=== PATIENT | male | born 1935 | race Caucasian/White ===

== ENCOUNTER 2018-03-21 10:46 | Emergency (ER) | payer MEDICARE ==
--- NOTE | 2018-03-21 11:04 | Emergency Department Record ---
History of Present Illness - General Chief complaint: Male Urogenital Problem Stated complaint: URINATING BLOOD Time Seen by Provider: 03/21/18 10:55 Source: Patient Mode of Arrival: Ambulatory Limitations: No limitations - History of Present Illness Initial comments: The patient is here due to intermittent hematuria for the last 5 months. He states it cleared up for a bit but then started back about a month ago. The patient was seen in the 4 days ago for a thumb wound infection and did complain of the hematuria also. He did give a urine with blood present. The patient was started on Augmentin and does have an appointment with Urology in 10 days. He denies any AP, nausea, vomiting, fever, or chills. MD Complaint: Other Onset/Timin -: Month(s) Location: Penis Quality: Burning Reports: Blood in urine - Related Data Allergies Allergy/AdvReac Type Severity Reaction Status Date / Time No Known Drug Allergies Allergy Unverified 03/17/18 10:02 Travel Screening - Travel/Exposure Within Last 30 Days Have you traveled within the last 30 days?: No - Travel/Exposure Within Last Year Have you traveled outside the [place] in the last year?: No - Additonal Travel Details Have you been exposed to anyone with a communicable illness?: No - Travel Symptoms Symptom Screening: None Review of Systems Constitutional: Denies: Chills, Fever Eyes: Denies: Eye discharge ENT: Denies: Congestion Respiratory: Denies: Cough, Dyspnea Past Medical History - SOCIAL HISTORY Smoking Status: Former smoker Alcohol Use: None Drug Use: None - RESPIRATORY Hx Respiratory Disorders: No - CARDIOVASCULAR Hx Cardio Disorders: Yes Hx Cardiac Cath: Yes Hx Heart Attack: Yes Hx Hypertension: Yes - NEURO Hx Neuro Disorders: Yes Hx CVA: Yes (1999) - GI Hx GI Disorders: No - Hx Genitourinary Disorders: Yes Hx UTI: Yes (Hurts to urinate for last few years) - ENDOCRINE Hx Endocrine Disorders: Yes Hx Thyroid Disease: Yes (Hypothyroid) - MUSCULOSKELETAL Hx Musculoskeletal Disorders: No - PSYCH Hx Psych Problems: No - HEMATOLOGY/ONCOLOGY Hx Hematology/Oncology Disorders: No Family Medical History Any Significant Family History?: No Hx Cancer: Brother/Sister Physical Exam - General General Appearance: Alert, Oriented x3, Cooperative, No acute distress - Head Head exam: Atraumatic, Normocephalic, Normal inspection - Eye Eye exam: Normal appearance, PERRL - Neck Neck exam: Normal inspection, Full ROM. negative: Tenderness - Respiratory Respiratory exam: Normal lung sounds bilaterally. negative: Respiratory distress - Cardiovascular Cardiovascular Exam: Regular rate, Normal rhythm, Normal heart sounds - GI/Abdominal GI/Abdominal exam: Soft, Normal bowel sounds. negative: Tenderness - Extremities Extremities exam: Normal inspection, Full ROM, Normal capillary refill. negative: Tenderness - Neurological Neurological exam: Alert. negative: Motor sensory deficit Course Vital Signs 03/21/18 10:48 Temperature 97.9 F Pulse Rate 54 L Respiratory 16 Rate Blood Pressure 127/63 Pulse Ox 99 - Reevaluation(s) Reevaluation #1: The patient is resting comfortably in no pain presently. He denies any nausea, vomiting, or constipation. I did discuss the CT results with him and the need for urgent Urology F/U. 03/21/18 14:06 Reevaluation #2: I did discuss the issues with the patient and feel he would be better off seeing a Urologist today. I did discuss the issues with Dr. Khoury and he would like the patient to go to the [facility] ER where his Fellow can see the patient. I did discuss this with the patient and his son and they will drive up to [facility] to be seen in the ER. 03/21/18 14:45 Medical Decision Making - Data Complexity MDM Data: Labs Ordered and/or Reviewed, X-Ray Ordered and/or Reviewed, EKG Ordered and/or Reviewed - Lab Data Result diagrams: 03/21/18 11:10 03/21/18 11:10 - EKG Data -: EKG Interpreted by Me EKG: No Acute Changes, Unchanged From Previous (The patient does have a NSR rhythm but with bigeminy. That is not a new finding for him and he does go in and out of it. It was evident on an EKG from 2015.) - Radiology Data Radiology results: Report reviewed (CT: Extensive diffuse bladder wall thickening with a nodular appearance and calcifications posteriorly. ) Disposition Disposition: Transfer Clinical Impression: Hematuria Qualifiers: Hematuria type: unspecified type Qualified Code(s): R31.9 - Hematuria, unspecified Disposition: Acute Care Hospital Transfer Transfer To: [facility] Reason For Transfer: Urology Accepting Physician: Mare Time Discussed w/Accepting Physician: 14:47 Condition: (2) Stable Forms: Patient Portal Access Time of Disposition: 14:47 Quality - Quality Measures Quality Measures: N/A - Blood Pressure Screening View Details: Yes Does Patient Have Any of the Following: No Blood Pressure Classification: Normal BP Reading Systolic Measurement: 104 Diastolic Measurement: 46 Screening for High Blood Pressure: < Normal BP, F/U Not Required > [G8783]
[2018-03-21 11:18] LABS: BASO % 0.5 % (0-6); EOS % 3.9 % (0-6); GRAN % 61.4 % (47-80); HEMATOCRIT 37.2 % (42.0-52.0); HEMOGLOBIN 11.6 gm/dl (14.0-18.0); LYMPH % 27.3 % (16-45); MEAN CELL VOLUME 93.9 fl (81-97); MEAN CORPUSCULAR HGB CONC 31.2 g/dl (32-36); MEAN PLATELET VOLUME 10.2 fl (7.4-10.4); MONO % 6.9 % (0-9); PLATELET COUNT 187 K/uL (130-400); RED BLOOD COUNT 3.96 M/uL (4.40-5.70); RED CELL DISTRIBUTION WIDTH 13.3 % (11.5-14.5); WHITE BLOOD COUNT W/O DIFF 6.2 K/uL (4.2-12.2)
[2018-03-21 11:20] LABS: MEAN CORPUSCULAR HEMOGLOBIN 29.2 pg (27-33)
[2018-03-21 11:27] LABS: BLOOD UREA NITROGEN 20 mg/dL (8-23); CREATININE 0.9 mg/dL (0.7-1.2); EST GLOMERULAR FILTRATION RATE > 60 mL/min
[2018-03-21 11:28] LABS: TOTAL PROTEIN 6.6 g/dL (6.6-8.7); URINE APPEARANCE TURBID; URINE BILIRUBIN NEGATIVE (NEGATIVE); URINE BLOOD LARGE (NEGATIVE); URINE COLOR RED; URINE GLUCOSE (UA) NEGATIVE (NEGATIVE); URINE KETONE TRACE (NEGATIVE); URINE LEUKOCYTE ESTERASE SMALL (NEGATIVE); URINE NITRITE POSITIVE (NEGATIVE)
[2018-03-21 11:30] LABS: GLUCOSE,RANDOM 110 mg/dL (74-109)
[2018-03-21 11:33] LABS: ALB/GLOB RATIO 1.5 (1.1-1.8); ALKALINE PHOSPHATASE 85 U/L (40-129); ALT/SGPT 17 U/L (<41); AST/SGOT 22 U/L (10.0-50.0); URINE PROTEIN 300 mg/dL (NEGATIVE)
[2018-03-21 11:34] LABS: URINE EPITHELIAL CELLS 0 - 2 (FEW); URINE WBC 0 - 2 (0-2/hpf)
[2018-03-21 11:35] LABS: URINE BACTERIA 1+
[2018-03-21] MEDS ORDERED: 0.9 % SODIUM CHLORIDE 1,000 ML BAG IV ONE (11:43)
[2018-03-21 12:58] LABS: CREATINE PHOSPHOKINASE 62 U/L (39-308)
[2018-03-21 12:59] LABS: CKMB 2.6 ng/mL (<6.73)
--- NOTE | 2018-03-22 16:31 | CT SCAN REPORT ---
DATE: 03/21/2018. EXAM: CT SCAN OF THE ABDOMEN AND PELVIS. HISTORY: Hematuria. TECHNIQUE: CT of the abdomen and pelvis was performed following intravenous administration of 100 mL of Omnipaque contrast. Oral contrast was also utilized. COMPARISON: None. FINDINGS: Limited evaluation of the lung bases shows emphysematous changes with minor fibrotic changes bilaterally. Calcified pleural plaque formation is noted. Osseous structures are grossly intact. There is an approximately 14 x 17 mm hypodensity within the left hepatic lobe; likely a cyst or hemangioma in the absence of cancer history. In addition, there is an approximately 6.0 x 4.0 mm hypodensity in the spleen; likely a tiny cyst. The adrenal glands, pancreas, and kidneys are unremarkable. The gallbladder is present. Rather extensive atheromatous changes. A large amount of stool in the colon. No gross evidence for bowel obstruction. A large amount of stool in the rectal vault. Diffuse wall thickening of the urinary bladder with irregular areas of urinary bladder wall calcification and nodularity. Further assessment with cystoscopy is recommended. The prostate is enlarged. Correlate with prostate specific antigen levels. Minor surrounding inflammatory change. No free air or free fluid. Nonenlarged inguinal chain and deep pelvic chain lymph nodes. IMPRESSION: 1. DIFFUSE URINARY BLADDER WALL THICKENING HAVING A SOMEWHAT NODULAR APPEARANCE POSTERIORLY WHERE THERE ARE IRREGULAR URINARY BLADDER WALL CALCIFICATIONS WELL. FURTHER ASSESSMENT WITH CYSTOSCOPY IS RECOMMENDED. THE PROSTATE IS ENLARGED WITH MULTIPLE CALCIFICATIONS. CORRELATE WITH PROSTATE SPECIFIC ANTIGEN LEVELS. 2. EXTENSIVE ATHEROMATOUS CHANGE. A LARGE AMOUNT OF STOOL IN THE COLON. 3. NONSPECIFIC HYPODENSITY IN THE LEFT HEPATIC LOBE; LIKELY CYST OR HEMANGIOMA. 4. PLEURAL-BASED CALCIFICATIONS. SUBCENTIMETER HYPODENSITY IN THE SPLEEN; LIKELY A TINY CYST. JOB NUMBER: [id number] [facility]
== END 2018-03-21 15:21 | disposition short-term general hospital (02) ==
LOC: ER 10:46
DX: R31.0 Gross hematuria (principal); I10 Essential (primary) hypertension; I25.2 Old myocardial infarction; Z87.891 Personal history of nicotine dependence; Z86.73 Personal history of transient ischemic attack (TIA), and cerebral infarction without residual deficits
CPT/HCPCS: 99285 ×2; 82550; 85025; 82553; 80053; 81001; 84484; 74177; 93005; 93010; Q9967; J7030

== ENCOUNTER 2019-12-08 07:43 | Emergency (ER) | payer MEDICARE ==
[2019-12-08] MEDS ORDERED: 0.9 % SODIUM CHLORIDE 1000ML 1,000 ML IV ONE (07:54)
--- NOTE | 2019-12-08 08:00 | Emergency Department Record ---
History of Present Illness - General Chief complaint: Nausea, Vomiting, Diarrhea Stated complaint: NAUSEA Time Seen by Provider: 12/08/19 07:48 Source: Patient, Family Mode of Arrival: Ambulatory Limitations: No limitations - History of Present Illness Initial comments: 84 yo male presents with a concern that he has part of his turkey sandwich stuck in his esophagus for 2 days since Saturday. He was eating a turkey sandwich on Saturday while watching football. He took a bite and felt like it got stuck. He has not been able to keep and food down since then. He has not been able to handle liquids or solids since then. He will occasionally spit up his saliva. He has had things get stuck in the past but it has self resolved. He does not recall ever having upper endoscopy in the past. No fever, no syncope. No abdominal pain. Hx of hypothyroid, elevated cholesterol, stroke, skin CA complaint: Nausea, Vomiting, Other (Possible food stuck since Saturday) -: Days(s) (2) Description of Vomiting: Watery Description of Diarrhea: Other (None) Radiation: None Severity: Moderate Quality: Aching Consistency: Constant Improves with: None Worsens with: Eating Context: Other - Related Data Allergies Allergy/AdvReac Type Severity Reaction Status Date / Time No Known Drug Allergies Allergy Verified 12/08/19 07:47 Review of Systems Constitutional: Denies: Chills, Fever, Malaise, Weakness Eyes: Denies: Eye discharge ENT: Denies: Congestion, Throat pain Respiratory: Denies: Cough, Dyspnea, Hemoptysis, Wheezes Cardiovascular: Denies: Chest pain, Palpitations, Syncope Endocrine: Denies: Fatigue, Polydipsia, Polyuria Gastrointestinal: Reports: Nausea, Vomiting. Denies: Abdominal pain, Diarrhea Genitourinary: Denies: Dysuria, Frequency, Hematuria Musculoskeletal: Denies: Arthralgia, Back pain, Myalgia Skin: Denies: Bruising, Change in color, Rash Neurological: Denies: Headache Psychiatric: Denies: Anxiety Hematological/Lymphatic: Denies: Easy bruising Past Medical History - SOCIAL HISTORY Smoking Status: Former smoker Drug Use: None - RESPIRATORY Hx Respiratory Disorders: No - CARDIOVASCULAR Hx Cardio Disorders: Yes Hx Cardiac Cath: Yes Hx Heart Attack: Yes Hx Hypertension: Yes - NEURO Hx Neuro Disorders: Yes Hx CVA: Yes (1999) - GI Hx GI Disorders: No - Hx Genitourinary Disorders: Yes Hx UTI: Yes (Hurts to urinate for last few years) - ENDOCRINE Hx Endocrine Disorders: Yes Hx Thyroid Disease: Yes (Hypothyroid) - MUSCULOSKELETAL Hx Musculoskeletal Disorders: No - PSYCH Hx Psych Problems: No - HEMATOLOGY/ONCOLOGY Hx Hematology/Oncology Disorders: No Family Medical History Hx Cancer: Brother/Sister Physical Exam - General General Appearance: Alert, Oriented x3, Cooperative, No acute distress Limitations: No limitations - Head Head exam: Atraumatic - Eye Eye exam: Normal appearance, PERRL. negative: Conjunctival injection, Scleral icterus - ENT ENT exam: Normal exam, Mucous membranes moist Ear exam: Normal external inspection Nasal Exam: Normal inspection Mouth exam: Normal external inspection - Neck Neck exam: Normal inspection - Respiratory Respiratory exam: Normal lung sounds bilaterally. negative: Rhonchi, Stridor, Wheezes - Cardiovascular Cardiovascular Exam: Regular rate, Normal rhythm, Normal heart sounds Peripheral Pulses: 2+: Radial (R), Radial (L) - GI/Abdominal GI/Abdominal exam: Soft. negative: Distended, Guarding, Tenderness - Rectal Rectal exam: Deferred - exam: Deferred - Extremities Extremities exam: negative: Calf tenderness, Pedal edema, Tenderness - Back Back exam: Denies: CVA tenderness (R), CVA tenderness (L) - Neurological Neurological exam: Alert, Oriented X3 - Psychiatric Psychiatric exam: Normal affect, Normal mood. negative: Agitated, Anxious - Skin Skin exam: Dry, Intact, Normal color, Warm Course - Reevaluation(s) Reevaluation #1: Vitals were reviewed No significant abnormalities 12/08/19 08:06 No GI at [facility] until Saturday12/08/19 08:14 The CBC is normal 12/08/19 08:26 The PT and PTT are normal The BMP was reviewed. CR is 1.1 with BUN of 30 12/08/19 08:53 A small amount of fluid was trialed in the ED (about 2 teaspoons). He did not tolerate this The CXR was reviewed. No acute process. I recommend transfer to a center with GI for consultation for probable esophageal obstruction. The patient and his son where advised that I recommend ambulance for transfer. I recommend ambulance in the event he vomits and can not protect his airway or chokes. He understands this and still declines EMS. He will only agree to transfer by private car. I explained that he will have to agree to sign AMA understanding the risks of transfer by private car. Waiting for son to return prior to transfer initiation. 12/08/19 09:01 12/08/19 09:21 The son has returned to the ED. We had the same conversion about transfer by ambulance as the recommendation. He and his son discussed it an still request private car. I discussed signing AMA given some risk if not monitored during transfer. Risks include but are not limited to choking, aspiration. I called [facility] call and discussed the case with Dr Koroma of the ED. She accepts the patient for transfer and further evaluation given no GI at [facility] Medical Decision Making - Lab Data Result diagrams: 12/08/19 08:00 12/08/19 08:00 Disposition Disposition: Transfer Clinical Impression: Vomiting, Esophageal obstruction Disposition: Acute Care Hospital Transfer Transfer To: [facility] Reason For Transfer: Esophageal obstruction Accepting Physician: Ga Time Discussed w/Accepting Physician: 09:27 Condition: (2) Stable Forms: Patient Portal Access Time of Disposition: 09:27 Quality - Quality Measures Quality Measures: N/A - Blood Pressure Screening Does Patient Have Any of the Following: No Blood Pressure Classification: Hypertensive Reading Systolic Measurement: 144 Diastolic Measurement: 73 Screening for High Blood Pressure: < Pre-Hypertensive BP, F/U Documented > [G8950] Pre-Hypertensive Follow-up Interventions: Referral to alternative/primary care provider.
[2019-12-08 08:10] LABS: BASO % 0.2 % (0-6); EOS % 0.1 % (0-6); GRAN % 79.9 % (47-80); HEMOGLOBIN 12.5 gm/dl (14.0-18.0); LYMPH % 14.2 % (16-45); MEAN CELL VOLUME 91.8 fl (81-97); MEAN CORPUSCULAR HEMOGLOBIN 29.4 pg (27-33); MEAN CORPUSCULAR HGB CONC 32.1 g/dl (32-36); MEAN PLATELET VOLUME 10.5 fl (7.4-10.4); MONO % 5.6 % (0-9); PLATELET COUNT 222 K/uL (130-400); RED BLOOD COUNT 4.25 M/uL (4.40-5.70); WHITE BLOOD COUNT W/O DIFF 8.3 K/uL (4.2-12.2)
[2019-12-08 08:21] LABS: INR 1.1; PARTIAL THROMBOPLASTIN TIME 29.5 SECONDS (24.5-39.1); PROTHROMBIN TIME (PATIENT) 11.2 SECONDS (9.5-12.1)
[2019-12-08 08:23] LABS: BLOOD UREA NITROGEN 30 mg/dL (8-23); EST GLOMERULAR FILTRATION RATE > 60 mL/min
[2019-12-08 08:26] LABS: GLUCOSE,RANDOM 134 mg/dL (74-109)
--- NOTE | 2019-12-08 09:19 | RADIOLOGY REPORT ---
EXAMINATION: Two View Chest Radiographs EXAM DATE: 12/08/2019 8:43 AM TECHNIQUE: Frontal and lateral views INDICATION: possible esophageal FB COMPARISON: None ENCOUNTER: Not applicable FINDINGS: Cardiomediastinal structures unremarkable. Pulmonary emphysema. Bilateral calcified pleural plaque. N o pulmonary consolidation or infiltration. Degenerative change thoracic spine. No radiopaque foreign body. No pneumothorax or pleural effusion IMPRESSION: No acute abnormality Dictated by: Yovani Cadet MD on 12/08/2019 9:12 AM. .
== END 2019-12-08 09:44 | disposition short-term general hospital (02) ==
LOC: ER 07:43
DX: K22.2 Esophageal obstruction (principal); R11.2 Nausea with vomiting, unspecified; I10 Essential (primary) hypertension; I25.2 Old myocardial infarction; Z87.891 Personal history of nicotine dependence
CPT/HCPCS: 71046; 80048; 85025; 85610; 85730; 99285; J7030

== ENCOUNTER 2020-01-02 19:01 | Emergency (ER) | payer MEDICARE ==
--- NOTE | 2020-01-02 19:14 | Emergency Department Record ---
History of Present Illness - General Chief Complaint: Fall Injury Stated Complaint: FALL Time Seen by Provider: 01/02/20 19:02 Source: Patient, EMS Mode of Arrival: EMS Limitations: No limitations - History of Present Illness Initial Comments: 84 yo male presents to ED for evaluation following a witnessed trip and fall just prior to arrival. Patient denies LOC, denies use of anticoagulation medications. Patient did sustain laceration injury to the right cheek on examination. Patient denies extremity injury, weakness, numbness, or tingling on examination. MD Complaint: Fall Onset/Timin -: Minutes(s) Fall From: Standing When Fall Occurred: Just prior to arrival Fall Witnessed: Yes, by living facility staff Place Fall Occurred: Home Loss of Consciousness: None Prolonged Down Time?: No Symptoms Prior to Fall: None Location: Head, Face Severity: Mild Associated Symptoms: Denies - [place] Coma Scale Eye Response: (4) Open spontaneously Motor Response: (6) Obeys commands Verbal Response: (5) Oriented Parvin Total: 15 - Related Data Home Medications Medication Instructions Recorded Confirmed Last Taken Hydrocodone/Acetaminophen [[place] 1 each PO Q6HR PRN 01/02/20 01/02/20 01/02/20 5-325 Tablet] Polyethylene Glycol 3350 [Miralax] 17 gm PO DAILY 01/02/20 01/02/20 01/02/20 Allergies Allergy/AdvReac Type Severity Reaction Status Date / Time No Known Drug Allergies Allergy Verified 12/08/19 07:47 Review of Systems Constitutional: Denies: Chills, Fever, Malaise, Night sweats Eyes: Denies: Eye discharge, Eye pain ENT: Denies: Congestion, Ear pain, Epistaxis Respiratory: Denies: Cough, Dyspnea Cardiovascular: Denies: Chest pain, Dyspnea on exertion Endocrine: Denies: Fatigue, Heat or cold intolerance Gastrointestinal: Denies: Abdominal pain, Nausea, Vomiting Genitourinary: Denies: Incontinence, Retention Musculoskeletal: Denies: Arthralgia, Back pain Skin: Reports: Other (Facial laceration). Denies: Bruising, Change in color Neurological: Denies: Abnormal gait, Confusion, Headache, Seizure Psychiatric: Denies: Anxiety Hematological/Lymphatic: Denies: Anemia, Blood Clots Past Medical History - SOCIAL HISTORY Smoking Status: Former smoker Drug Use: None - RESPIRATORY Hx Respiratory Disorders: No - CARDIOVASCULAR Hx Cardio Disorders: Yes Hx Cardiac Cath: Yes Hx Heart Attack: Yes Hx Hypertension: Yes - NEURO Hx Neuro Disorders: Yes Hx CVA: Yes (1999) - GI Hx GI Disorders: No - Hx Genitourinary Disorders: Yes Hx UTI: Yes (Hurts to urinate for last few years) - ENDOCRINE Hx Endocrine Disorders: Yes Hx Thyroid Disease: Yes (Hypothyroid) - MUSCULOSKELETAL Hx Musculoskeletal Disorders: No - PSYCH Hx Psych Problems: No - HEMATOLOGY/ONCOLOGY Hx Hematology/Oncology Disorders: No Family Medical History Hx Cancer: Brother/Sister Physical Exam - General General Appearance: Alert, Oriented x3, Cooperative, Mild distress Limitations: No limitations - Head Head exam: Normocephalic Head exam detail: Laceration (2.5 cm laceration to the right cheek on examination). negative: Abrasion, Contusion, Contreras's sign, General tenderness, Hematoma - Eye Eye exam: Normal appearance. negative: Conjunctival injection, Periorbital swelling, Periorbital tenderness, Scleral icterus - ENT Ear exam: negative: Auricular hematoma, Auricular trauma Nasal Exam: negative: Active bleeding, Discharge, Dried blood, Foreign body Mouth exam: negative: Drooling, Laceration, Muffled voice, Tongue elevation Throat exam: negative: Tonsillar erythema, Tonsillomegaly, R peritonsillar mass, L peritonsillar mass - Neck Neck exam: Normal inspection. negative: Meningismus, Tenderness - Respiratory Respiratory exam: Normal lung sounds bilaterally. negative: Rales, Respiratory distress, Rhonchi, Stridor - Cardiovascular Cardiovascular Exam: Regular rate, Normal rhythm, Normal heart sounds - GI/Abdominal GI/Abdominal exam: Soft. negative: Rebound, Rigid, Tenderness - Rectal Rectal exam: Deferred - exam: Deferred - Extremities Extremities exam: Normal inspection. negative: Pedal edema, Tenderness - Back Back exam: Denies: CVA tenderness (R), CVA tenderness (L) - Neurological Neurological exam: Alert, Normal gait, Oriented X3 - Psychiatric Psychiatric exam: Normal affect, Normal mood - Skin Skin exam: Normal color. negative: Abrasion Type of lesion: negative: abrasion Course Vital Signs 01/02/20 19:04 Temperature 97.8 F Pulse Rate [ 86 Pulse Ox Probe] Respiratory 20 Rate Blood Pressure 133/61 [Left Arm] Pulse Ox 100 - Reevaluation(s) Reevaluation #1: 01/02/20 19:36 CT Head: No acute intracranial injury Remote lacunar infarct left CT Cervical Spine: Osteopenia with DJD No acute fracture or subluxation Moderate canal stenosis C3-C4, Mild C4-5, C5-6. Neural foraminal stenosis diffusely Procedure Note: 3.0 cm laceration to the right cheek, bleeding controlled. Wound was cleaned and prepped in sterile fashion, no residual FB identified on examination. Wound was anesthetized with 1.5 mL of 1% Lidocaine with epinephrine with good anesthesia, and the laceration was repaired with 5-0 Prolene sutures (#8) in interrupted fashion. Patient tolerated the procedure well without complications. Patient's tetanus was updated in 2018. Patient was given wound care instructions and signs/symptoms to return to the ED for as well including: increased swelling, pain, redness, or discharge from the wound. Patient was counseled to return to the ED for suture removal in 10 days. Disposition Disposition: Discharge Clinical Impression: Fall from standing Qualifiers: Encounter type: initial encounter Qualified Code(s): W19.XXXA - Unspecified fall, initial encounter Facial laceration Qualifiers: Encounter type: initial encounter Qualified Code(s): S01.81XA - Laceration without foreign body of other part of head, initial encounter Disposition: Home, Self-Care Condition: (2) Stable Instructions: Care For Your Stitches (ED) Additional Instructions: Return to ED if your symptoms worsen or if you have any concerns. Follow-up with your family doctor in 3-5 days as directed. Forms: Patient Portal Access Time of Disposition: 20:21 Quality - Quality Measures Quality Measures: N/A - Blood Pressure Screening Does Patient Have Any of the Following: No Blood Pressure Classification: Pre-Hypertensive BP Reading Systolic Measurement: 123 Diastolic Measurement: 62 Screening for High Blood Pressure: < Pre-Hypertensive BP, F/U Documented > [G8950] Pre-Hypertensive Follow-up Interventions: Referral to alternative/primary care provider.
[2020-01-02] MEDS ORDERED: Diph,Pert(Acell),Tet Vac 0.5 ML SYR IM ONE (20:15)
--- NOTE | 2020-01-02 20:15 | CT SCAN REPORT ---
EXAMINATION: CT Head without IV Contrast EXAM DATE: 01/02/2020 8:07 PM TECHNIQUE: Standard protocol CT images of the head were obtained without intravenous contrast. Talbert l and sagittal reconstructed images were created. INDICATION: fall injury COMPARISON: Head CT 07/19/2015 HAND DOMINANCE: Unknown. ENCOUNTER: Initial FINDINGS: 1. There is no intracranial mass, midline shift, extraaxial fluid collection or hemorrhage. 2. The ventricles, sulci and cisterns are normal. 3. Moderate generalized atrophy of the brain. 5 mm hypodensity in the left lentiform nucleus as befo re consistent with remote infarct. No CT evidence of large acute territorial infarct. 4. There is no fracture. 5. The visualized aspects of the orbits, paranasal sinuses, and mastoid air cells are normal. Modera te carotid calcification. IMPRESSION: 1. No acute intracranial process with no interval change. 2. Small remote lacunar infarct of the left lentiform nucleus. Dictated by: Robert Packer MD on 01/02/2020 8:10 PM. .
--- NOTE | 2020-01-02 20:17 | CT SCAN REPORT ---
EXAMINATION: CT Cervical Spine without IV Contrast EXAM DATE: 01/02/2020 8:07 PM TECHNIQUE: Standard protocol cervical spine CT imaging was performed without intravenous contrast. [place] and sagittal images were reconstructed. INDICATION: fall injury COMPARISON: None ENCOUNTER: Initial FINDINGS: Osteopenia. Anatomic alignment of the cervical spine. No acute fracture or subluxation. There is mode rate to severe degenerative disc disease from C3-4 to C6-7 manifested by disc space narrowing and end plate osteophytes. Craniocervical junction:Unremarkable. C1-2: Unremarkable. C2-3: No central canal stenosis. Facet and uncovertebral joint hypertrophy with moderate right neural foraminal stenosis C3-4: Endplate osteophytes with prominent facet and uncovertebral joint hypertrophy. Moderate central canal stenosis. Severe bilateral neural foraminal stenosis. C4-5: Endplate osteophytes. Prominent facet and uncovertebral joint hypertrophy. Mild central canal s tenosis with thecal sac measuring 9 mm. Moderate to severe bilateral neural foraminal stenosis. C5-6: Endplate osteophytes. Facet and uncovertebral joint hypertrophy. Mild central canal stenosis wi th thecal sac measuring 9 mm there is moderate right and severe left neural foraminal stenosis.. C6-7: No central canal stenosis. Mild bilateral neural foraminal stenosis C7-T1: Unremarkable. Soft tissues of the cervical region demonstrate severe carotid bulb calcification. Surgical clips in the thyroid bed. Emphysematous changes at the lung apices which are otherwise clear. IMPRESSION: 1. Osteopenia with multilevel degenerative change of the cervical spine. No acute fracture or subluxa tion. 2. Moderate central canal stenosis at C3-4. There is mild central canal stenosis at C4-5 and C5-6. 3. Varying degrees of neural foraminal stenosis as above. Dictated by: Robert Packer MD on 01/02/2020 8:12 PM. .
== END 2020-01-02 20:36 | disposition home or self-care (01) ==
LOC: ER 19:01
DX: S01.411A Laceration without foreign body of right cheek and temporomandibular area, initial encounter (principal); S09.90XA Unspecified injury of head, initial encounter; W01.10XA Fall on same level from slipping, tripping and stumbling with subsequent striking against unspecified object, initial encounter; Y92.129 Unspecified place in nursing home as the place of occurrence of the external cause; I10 Essential (primary) hypertension; I25.2 Old myocardial infarction; Z87.891 Personal history of nicotine dependence
CPT/HCPCS: 12013; 70450; 72125; 99284

== ENCOUNTER 2020-01-12 09:00 | Emergency (ER) | payer MEDICARE ==
--- NOTE | 2020-01-12 09:16 | Emergency Department Record ---
History of Present Illness - General Stated Complaint: SUTURE REMOVAL Time Seen by Provider: 01/12/20 09:06 Source: Patient, Family Mode of arrival: Ambulatory Limitations: No limitations - History of Present Illness Initial Comments: pt had sutures 9 days ago on his cheek. it has healed well. pt has no salvador and no vomiting MD Complaint: Suture/staple removal Initial Visit For: Laceration Returns Today for: Staple/stitch removal Symptoms Since Prior Visit: No new symptoms Associated Symptoms: None - Related Data Allergies Allergy/AdvReac Type Severity Reaction Status Date / Time No Known Drug Allergies Allergy Verified 12/08/19 07:47 Review of Systems Constitutional: Reports: Weakness. Denies: Chills, Fever, Malaise, Night sweats Eyes: Reports: Eye pain. Denies: Eye discharge, Photophobia, Vision change ENT: Denies: Congestion, Dental pain, Ear pain Respiratory: Denies: Cough, Dyspnea, Hemoptysis, Stridor Cardiovascular: Denies: Arrhythmia, Chest pain, Paroxysmal nocturnal dyspnea, Rheumatic Fever Endocrine: Denies: Fatigue, Polydipsia, Polyuria Gastrointestinal: Denies: Abdominal pain, Constipation, Hematochezia Genitourinary: Denies: Discharge, Dysuria, Frequency, Hematuria, Testicular pain, Testicular mass Musculoskeletal: Denies: Arthralgia Skin: Denies: Bruising, Change in color, Change in hair/nails Neurological: Reports: Confusion. Denies: Abnormal gait, Headache, Numbness, Paresthesias, Seizure Psychiatric: Denies: Auditory hallucinations, Suicidal thoughts, Visual hallucinations Hematological/Lymphatic: Denies: Anemia, Blood Clots, Easy bleeding Past Medical History - SOCIAL HISTORY Smoking Status: Former smoker Drug Use: None - RESPIRATORY Hx Respiratory Disorders: No - CARDIOVASCULAR Hx Cardio Disorders: Yes Hx Cardiac Cath: Yes Hx Heart Attack: Yes Hx Hypertension: Yes - NEURO Hx Neuro Disorders: Yes Hx CVA: Yes (1999) - GI Hx GI Disorders: No - Hx Genitourinary Disorders: Yes Hx UTI: Yes (Hurts to urinate for last few years) - ENDOCRINE Hx Endocrine Disorders: Yes Hx Thyroid Disease: Yes (Hypothyroid) - MUSCULOSKELETAL Hx Musculoskeletal Disorders: No - PSYCH Hx Psych Problems: No - HEMATOLOGY/ONCOLOGY Hx Hematology/Oncology Disorders: No Family Medical History Hx Cancer: Brother/Sister Physical Exam - General General Appearance: Alert, Oriented x3, Cooperative, No acute distress - Head Head exam: Normal inspection Head exam detail: Laceration (well healed) - Eye Eye exam: Normal appearance, PERRL, EOMI Pupils: Normal accommodation - ENT ENT exam: Normal exam, Mucous membranes moist, Normal external ear exam, Normal orophraynx, TM's normal bilaterally Ear exam: Normal external inspection. negative: External canal tenderness Nasal Exam: Normal inspection. negative: Discharge, Sinus tenderness Mouth exam: Normal external inspection, Tongue normal Teeth exam: Normal inspection. negative: Dental caries Throat exam: Normal inspection. negative: Tonsillar erythema, Tonsillar exudate - Neck Neck exam: Normal inspection, Full ROM. negative: Tenderness - Respiratory Respiratory exam: Normal lung sounds bilaterally. negative: Respiratory distress - Cardiovascular Cardiovascular Exam: Regular rate, Normal rhythm, Normal heart sounds - GI/Abdominal GI/Abdominal exam: Soft, Normal bowel sounds. negative: Tenderness - Rectal Rectal exam: Deferred - exam: Deferred - Extremities Extremities exam: Normal inspection, Full ROM, Normal capillary refill. negative: Tenderness - Back Back exam: Reports: Normal inspection, Full ROM. Denies: Muscle spasm, Rash noted, Tenderness - Neurological Neurological exam: Alert, Normal gait, Oriented X3, Reflexes normal - Psychiatric Psychiatric exam: Normal affect, Normal mood - Skin Skin exam: Dry, Intact, Normal color, Warm Disposition Disposition: Discharge Clinical Impression: Visit for suture removal Disposition: Home, Self-Care Condition: (1) Good Instructions: Stitches Removal (ED) Additional Instructions: follow up with family doctor. return sooner if worse Quality - Quality Measures Quality Measures: N/A - Blood Pressure Screening Does Patient Have Any of the Following: No Systolic Measurement: ~ Screening for High Blood Pressure: < First Hypertensive BP, F/U Documented > [[id number]] First Hypertensive Follow-up Interventions: Follow-up with rescreen GT 1 day and LT 4 weeks.
== END 2020-01-12 09:39 | disposition home or self-care (01) ==
LOC: ER 09:00
DX: Z48.02 Encounter for removal of sutures (principal)